=== PATIENT | male | born 1985 | race African-American/Black ===

== ENCOUNTER 2022-09-23 14:11 | Emergency (ER) | payer MEDICAID, SELFPAY ==
[2022-09-23 14:23] VITALS: BP 151/69; PULSE 83; RESP 18; TEMP 36.7; O2SAT 99
--- NOTE | 2022-09-23 16:21 | ED.BACK ---
HPI - Back Pain/Injury General Chief Complaint: Back Pain/Injury Stated Complaint: Pelvic/Lower Back pain x1 week Time Seen by Provider: 09/23/22 16:14 History of Present Illness HPI Narrative: 37-year-old male presents to the emergency room today for complaints of low back pain that started 1 week ago. He denies any traumatic injury. He does not know what he was doing when it started. He denies having any history of chronic back pain. Denies any numbness or tingling to his lower extremities. No incontinence of bowel or bladder. Reports that it hurts to go from sitting to standing and with bending forward and leaning back. Related Data Allergies Allergy/AdvReac Type Severity Reaction Status Date / Time No Known Allergies Allergy Verified 09/23/22 16:25 Review of Systems Review of Systems: CONSTITUTIONAL: Denies fever, chills, or sweats. EYES: Denies visual changes, redness, or discharge. ENT: Denies rhinorrhea, congestion, sore throat, or otalgia. CARDIOVASCULAR: Denies chest pain, palpitations, or edema. RESPIRATORY: Denies cough or dyspnea. GASTROINTESTINAL: Denies abdominal pain, nausea, vomiting, or diarrhea. GENITOURINARY: Denies dysuria or hematuria. SKIN: Denies rash or itching. MUSCULOSKELETAL: As per HPI NEUROLOGIC: Denies headache, numbness, dizziness, or weakness. PSYCHIATRIC: Denies anxiety or depression. Exam Narrative: GENERAL: Well-appearing, well-nourished, and in no acute distress. HEAD: Normocephalic, atraumatic. NECK: Supple. No adenopathy or masses. No carotid bruits or JVD CHEST: Clear to auscultation. No respiratory distress. No wheezes rales or rhonchi HEART: Regular rate and rhythm. No murmur heard. Normal peripheral pulses. ABDOMEN: Soft, nontender, nondistended, normal active bowel sounds. EXTREMITIES: Normal range of motion. No edema. Back: no midline spinal tenderness, increased pain with flexion and extension, limited ROM SKIN: Warm, dry, no rash. NEURO: No focal deficits. Alert and oriented x3. Lower extremity reflexes and sensation intact PSYCH: Normal mood and affect. Course Vital Signs Vital signs: Vital Signs Temperature 36.7 C 09/23/22 14:23 Pulse Rate 83 09/23/22 14:23 Respiratory Rate 18 09/23/22 14:23 Blood Pressure 151/69 H 09/23/22 14:23 Pulse Oximetry 99 09/23/22 14:23 Oxygen Delivery Room Air 09/23/22 14:23 Temperature 36.7 C 09/23/22 14:23 Pulse Rate 83 09/23/22 14:23 Respiratory Rate 18 09/23/22 14:23 Blood Pressure 151/69 H 09/23/22 14:23 Pulse Oximetry 99 09/23/22 14:23 Oxygen Delivery Room Air 09/23/22 14:23 Discharge Plan Discharge Clinical Impression: Low back pain Qualifiers: Chronicity: acute Back pain laterality: midline Sciatica presence: without sciatica Qualified Code(s): M54.50 - Low back pain, unspecified Patient Disposition: Home, Self-Care Condition: Stable Instructions: Antibiotic Form, Acute Low Back Pain (ED) Additional Instructions: Follow up with primary care provider next week. Take pain med and muscle relaxer as needed. Prescriptions: New naproxen [Naprosyn] 500 mg tablet 500 mg PO BID PRN (Reason: pain) Qty: 30 0RF cyclobenzaprine 10 mg tablet 10 mg PO TID PRN (Reason: muscle spasm) Qty: 20 0RF hydrocodone-acetaminophen 5-325 mg tablet 1 tablet PO Q6H PRN (Reason: pain) Qty: 10 0RF Follow-up/Referrals: Damien Pritchard MD [Physician] - PHYSICIAN,[facility] [Primary Care Provider] - Time of Disposition: 16:29
== END 2022-09-23 16:54 | disposition home or self-care (01) ==
PROVIDERS: Emergency Provider Nurse Practitioner Family
DX: M54.50 Low back pain, unspecified (principal)
CPT/HCPCS: 99283